=== PATIENT | male | born 1980 | race Hispanic/Latino ===

== ENCOUNTER 2021-05-01 07:32 | Outpatient (CLI) | payer BC, SELFPAY ==
--- NOTE | 2021-05-08 10:38 | WPDHOMESLEEP ---
Sleep Study - Home Unattended Date of Study: 05/01/21 Ordering Provider: Alisson Springer, PACait Interpreting Provider: Vanita España, DO Home Sleep Study Type: Apnea Link Air Height: 1.8 m Weight: 127.006 kg Body Mass Index: 39.0 Neck Circumference (inches): 18 [place]: 8 Reason for Sleep Study Witnessed apneas Sleep History The patient is a 41-year-old male that had a sleep study ordered by his primary care due to the patient's witnessing apneas while he slept. 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 He denies awakening from sleep short of breath. He rarely awakens at night with heartburn, belching or cough. He occasionally snores and is frequently loud enough that others complain. He denies having trouble sleeping when he has a cold. He denies waking up gasping for air throughout the night. He occasionally has breathing problems at night observed by himself or others. He occasionally sweats excessively at night. He denies having heart palpitations or irregular heartbeats during the night. He occasionally falls asleep during the day but never while driving. He denies sleep paralysis, cataplexy and hypnagogic / hypnopompic hallucinations. He denies having nightmares. He occasionally remembers his dreams. He denies having thoughts race through his mind. He denies feeling sad, depressed or anxious. He denies noticing parts of his body jerk. He denies kicking during the night. He denies having crawling and aching feelings in his legs. He rarely has leg pain during the night. He occasionally grinds his teeth during sleep but never awakens with a morning jaw pain. He is occasionally bothered by pain during the day but never awakened by pain during the night. He rarely wakes up feeling stiff in the morning. He occasionally wakes up with sore achy muscles. He occasionally wakes up with pain in the neck, spine or other joints. He goes to bed between 10-11:00 p.m. on both weekdays and weekends. He is unsure how long it takes him to fall asleep. He is unsure how many times he wakes up throughout the night. He wakes up at 4:30 a.m. on the weekdays and 7:30 a.m. on the weekends. He typically gets 5-6 hours of sleep per night. He does not stay in bed after waking up in the morning. He currently lives with his and children. He does not consume any caffeinated beverages within 2 hours of bedtime. He does not engage in physical exercise before bedtime. He will watch television before falling asleep. He will take naps in the afternoon or the evening and they are refreshing. The patient consumes caffeinated beverages throughout the day. He will drink alcohol on the weekends. He denies tobacco and recreational drug use. FORMERLY [facility], [facility] Social History Social History Smoking status: Never smoker Alcohol intake: current Sleep Procedure This test was performed using 4 channel monitoring including respiratory effort channel, snoring channel, heart rate channel, and oxygen saturation channel. This study was scored using [facility] guidelines. Sleep Architecture The patient had a total recording time of 8 hours 57 minutes and total monitoring time of 8 hours 36 minutes. The patient spent 8 hours 34 minutes, 99.6% of total monitoring time in the supine position. Respiratory Analysis The patient had an AHI of 71.7 and a central apnea index of 2.6. The patient had 446 apneas and 171 hypopneas. No Daniel-Wharton respirations were seen. Oximetry Data The patient had a baseline oxygen saturation of 98% and an average oxygen saturation of 93%. The lowest recorded oxygen saturation was 66%. The patient had 527 desaturations resulting in an oxygen desaturation index of 60. The patient spent 1 hour 7 minutes, 13% of total monitoring time with an oxygen saturation less than 88%. Snoring Profile Snoring was present throughout the entire study. Cardiac Profile The patient had an average
[2021-05-08 10:48] VITALS: BMI 39.0
== END 2021-05-07 13:17 | disposition home or self-care (01) ==
LOC: ANHCSM 07:32
PROVIDERS: PCP Physician Assistant; Visit Provider Physician Assistant
DX: G47.30 Sleep apnea, unspecified (principal); G47.33 Obstructive sleep apnea (adult) (pediatric)
CPT/HCPCS: 95806

== ENCOUNTER → 2021-05-29 00:25 | Outpatient (CLI) | payer BC, SELFPAY ==
[2021-05-29 11:26] LABS: SARS-CoV-2 RNA PCR Negative
== END ==
PROVIDERS: PCP Physician Assistant; Visit Provider Internal Medicine Critical Care Medicine
DX: R68.89 Other general symptoms and signs (principal); Z20.822 Contact with and (suspected) exposure to COVID-19
CPT/HCPCS: C9803; U0003; U0005

== ENCOUNTER 2021-06-01 08:52 | Outpatient (CLI) | payer BC, SELFPAY ==
--- NOTE | 2021-06-15 13:26 | WPDSLEEPSTUD ---
Sleep Study Date of Study: 06/01/21 Ordering Provider: UNKNOWN,DOCTOR Interpreting Physician: Vanita España DO Sleep Study Type: CPAP Titration Height: 1.8 m Weight: 127.006 kg Body Mass Index: 39.0 Neck Circumference (inches): 15.5 [place]: 10 Reason for Sleep Study The patient had a home sleep study on May 01, 2021 that showed an AHI of 71.7 with desaturation down to 66%. Sleep History The patient is a 41-year-old male that had a sleep study ordered by his primary care due to the patient's witnessing apneas while he slept. The patient is a laborer plumbing by trade. He denies awakening from sleep short of breath. He rarely awakens at night with heartburn, belching or cough. He occasionally snores and is frequently loud enough that others complain. He denies having trouble sleeping when he has a cold. He denies waking up gasping for air throughout the night. He occasionally has breathing problems at night observed by himself or others. He occasionally sweats excessively at night. He denies having heart palpitations or irregular heartbeats during the night. He occasionally falls asleep during the day but never while driving. He denies sleep paralysis, cataplexy and hypnagogic / hypnopompic hallucinations. He denies having nightmares. He occasionally remembers his dreams. He denies having thoughts race through his mind. He denies feeling sad, depressed or anxious. He denies noticing parts of his body jerk. He denies kicking during the night. He denies having crawling and aching feelings in his legs. He rarely has leg pain during the night. He occasionally grinds his teeth during sleep but never awakens with a morning jaw pain. He is occasionally bothered by pain during the day but never awakened by pain during the night. He rarely wakes up feeling stiff in the morning. He occasionally wakes up with sore achy muscles. He occasionally wakes up with pain in the neck, spine or other joints. He goes to bed between 10-11:00 p.m. on both weekdays and weekends. He is unsure how long it takes him to fall asleep. He is unsure how many times he wakes up throughout the night. He wakes up at 4:30 a.m. on the weekdays and 7:30 a.m. on the weekends. He typically gets 5-6 hours of sleep per night. He does not stay in bed after waking up in the morning. He currently lives with his and children. He does not consume any caffeinated beverages within 2 hours of bedtime. He does not engage in physical exercise before bedtime. He will watch television before falling asleep. He will take naps in the afternoon or the evening and they are refreshing. The patient consumes caffeinated beverages throughout the day. He will drink alcohol on the weekends. He denies tobacco and recreational drug use. [facility] Past Medical History Medical History MILLI (obstructive sleep apnea) Social History Social History Smoking status: Never smoker Alcohol intake: current Sleep Procedure This test was performed using the [employer] multiple channel system including EOG, EEG, submental EMG, EKG, nasal and oral airflow using thermistors and nasal pressure sensors, chest and abdominal belts for body position data, and pulse oximetry. Video monitoring was also performed. The study was scored using CMS guidelines. Sleep Architecture The patient had a total recording time of 369 minutes and total sleep time of 331 minutes. The sleep efficiency was 89.7%. Sleep latency was 2.8 minutes and REM latency was 71.5 minutes. The patient had 23 awakenings. The patient spent 21 minutes, 6.3% of total sleep time in stage N1. The patient spent 240 minutes, 72.5% of total sleep time in stage N2. The patient spent 0 minutes in stage N3. The patient spent 70 minutes, 21.1% of total sleep time and REM sleep. The patient spent 331 minutes, 100% of total sle
[2021-06-15 13:34] VITALS: BMI 39.0
== END 2021-06-02 04:01 | disposition home or self-care (01) ==
LOC: ANHCSM 08:53
PROVIDERS: PCP Physician Assistant
DX: G47.33 Obstructive sleep apnea (adult) (pediatric) (principal)
CPT/HCPCS: 95811